=== PATIENT | female | born 1960 ===

== ENCOUNTER 2017-10-04 09:05 | Outpatient (CLI) | payer OTHER ==
[~2017-10-04] VITALS: Ht 160 cm; Wt 88.0 kg
== END 2017-10-04 09:20 | disposition home or self-care (01) ==
LOC: OFIC 805 09:05
DX: H61.21 Impacted cerumen, right ear (principal); H93.11 Tinnitus, right ear; H90.41 Sensorineural hearing loss, unilateral, right ear, with unrestricted hearing on the contralateral side

== ENCOUNTER 2017-10-18 15:20 | Outpatient (CLI) | payer OTHER | END 2017-10-18 15:40 | disposition home or self-care (01) | LOC: OFIC 805 15:20 | DX: H93.11 Tinnitus, right ear (principal); H90.3 Sensorineural hearing loss, bilateral ==

== ENCOUNTER 2017-11-12 10:59 | Outpatient (CLI) | payer OTHER ==
[~2017-11-12] VITALS: Ht 152.4 cm; Wt 88.0 kg
== END 2017-11-12 11:15 | disposition home or self-care (01) ==
LOC: OFIC 805 10:59
DX: H93.11 Tinnitus, right ear (principal); H90.3 Sensorineural hearing loss, bilateral; R51 Headache

== ENCOUNTER 2020-01-22 09:56 | Emergency (ER) | payer OTHER ==
[~2020-01-22] VITALS: Ht 160 cm; Wt 83.5 kg
[2020-01-22] MEDS ORDERED: SYNTHROID112 MCG (10:31)
== END 2020-01-22 13:35 | disposition home or self-care (01) ==
LOC: ER 09:56
DX: B34.9 Viral infection, unspecified (principal); R53.81 Other malaise; Z03.818 Encounter for observation for suspected exposure to other biological agents ruled out